=== PATIENT | female | born 1970 | race Caucasian/White ===

== ENCOUNTER 2023-04-03 06:07 | Observation (INO) ==
--- NOTE | 2023-03-17 15:24 | PAT Medication Instructions ---
Medication Instructions Date of Service March 17, 2023 Home Medications alprazolam 0.5 mg tablet 0.5 mg PO TID PRN Anxiety cyclobenzaprine 10 mg tablet 10 mg PO HS PRN muscle spasms liraglutide (weight loss) 3 mg/0.5 mL (18 mg/3 mL) subcut pen injector (Saxenda) 3 mg subcut QAM metoprolol tartrate 25 mg tablet 25 mg PO HS DO NOT take the morning of surgery liraglutide (weight loss) 3 mg/0.5 mL (18 mg/3 mL) subcut pen injector (Saxenda) 3 mg subcut QAM Take morning of surgery With a small sip of water, OTHERWISE NOTHING TO EAT OR DRINK AFTER MIDNIGHT: alprazolam 0.5 mg tablet 0.5 mg PO TID PRN Anxiety (if needed) Take evening before surgery alprazolam 0.5 mg tablet 0.5 mg PO TID PRN Anxiety (if needed) metoprolol tartrate 25 mg tablet 25 mg PO HS cyclobenzaprine 10 mg tablet 10 mg PO HS PRN muscle spasms (if needed) Other Notes If you have any questions please call us at [phone] or [phone] or [phone] or [phone]
--- NOTE | 2023-03-20 11:21 | Anesthesiology Consultation ---
Date of Service March 20, 2023 Assessment & Plan (1) Encounter for pre-operative examination: - check urine test STAT Am DOS. - awaiting surgeon ordered medical clearance, Edenilson Caldwell, 03/26/23. Optimization form regarding palpitations with associated dizziness completed, to be faxed to PCP. Chart Review Chart Review: Pending: Refer to Additional Notes / Consult section and Patient seen in Pre Admission Testing Teaching & Discussion Pre-Anesthesia Teaching/Discussion Notes: Instructed NPO after midnight before surgery, except medications with 15 cc of water. Medication instructions provided according to the PAT guidelines. History Surgery Operation Date: 04/03/23 10:05 Proposed Procedures p C6 Corpectomy, C5-C7 Fusion - Mckay Brady, Height/Weight Height: 4 ft 11 in Weight: 86 kg Allergies Allergy/AdvReac Type Severity Reaction Status Date / Time codeine AdvReac Unknown Headache Verified 03/16/23 10:03 Medications Home Medications Medication Instructions Recorded Confirmed Last Taken alprazolam 0.5 mg tablet 0.5 mg PO TID PRN Anxiety 03/16/23 03/16/23 Unknown cyclobenzaprine 10 mg tablet 10 mg PO HS PRN muscle spasms 03/16/23 03/16/23 Unknown liraglutide (weight loss) 3 mg/0.5 3 mg subcut QAM 03/16/23 03/16/23 Unknown mL (18 mg/3 mL) subcut pen injector (Saxenda) metoprolol tartrate 25 mg tablet 25 mg PO HS 03/16/23 03/16/23 Unknown Past Medical History Medical History (Updated 03/20/23 @ 12:28 by Aliya Pisano PA-C) Anxiety Depression GERD (gastroesophageal reflux disease) controlled, stable per pt-notices increase with stress or tomato based foods History of COVID-19 07/2021- fever, fatigue, SOB - denies hospitalization - resolved Obesity Taking Saxenda for weight loss Palpitations controlled w/ metoprolol, reports chronic occasional associated lightheadedness/dizziness without presyncope/change/worsening Patient denies h/o stroke, seizures, heart attack, heart failure, DM, HTN, blood clots or blood transfusions. Exercise / Class Metabolic Activity II 4-5 Yardwork/Stairs/Walk up hill (denies shortness of breath or chest discomfort with 1 FOS) Past Family History Family History Other No family history of adverse response to anesthesia Past Surgical History Surgical History (Updated 03/20/23 @ 11:40 by Aliya Pisano PA-C) H/O shoulder surgery left SLAP tear History of endometrial ablation Hx of section x2 Hx of cholecystectomy Nausea and vomiting after administration of anesthetic agent denies needing scop patch Past Anesthesia History No Hx of Anesthesia Complications and No Family Hx of Anesthesia Complications History of PONV History of PONV (denies needing scop patch) and Hx of Motion Sickness Social History Smoking Status: Current every day smoker tobacco type: cigarettes Smoking cigarettes per day: 10 per day - advised Do You Dip or Chew Tobacco: No Hx Alcohol Use: No Hx Substance Use: No substance use type: does not use Review of Systems Snoring, denies witnessed apneas. Patient denies chest pain, shortness of breath, dyspnea on exertion, fever, chills, cough, or wheezing. Physical Exam Vital Signs Vitals BP 113/81 P 97 TEMP 98.7 SP02 98% on RA RESP 18 Physical Full cervical extension range of motion without pain TMD 3.5 finger breadths Mallampati Score 3 Dentition: one crown, denies chipped or loose teeth, caps, implants or bridges Lungs: normal respiratory effort. Good air movement, clear throughout to auscultation, no adventitious breath sounds Cardiac: regular rate and rhythm, no murmurs noted Carotid arteries: negative bruit bilat Lab Results Anesthesia Preop Results Results Anesthesia Widget: WBC 11.54 K/ul (4.8-10.8) H 03/20/23 Hgb 14.1 g/dl (12.0-16.0) 03/20/23 Hct 41.7 % (37.0-47.0) 03/20/23 Plt 408 K/uL (130-400) H 03/20/23 Na 138 mmol/L (136-145) 03/20/23 K 3.9 mmol/L (3.5-5.1) 03/20/23 Cl 108 mmol/L (98-107) H 03/20/23 CO2 25 mmol/L (21-32) 03/20/23 BUN 11 mg/dl (6-23) 03/20/23 Creat 0.64 mg/dl (0.6-1.2) 03/20/23 Glucose Level 85 mg/dl (70-99(Fasting)) 03/20/23 PT 11.4 Seconds (9.0-12.0) 03/20/23 PTT 28.7 Seconds (21.0-31.0) 03/20/23 INR 1.0 (0.9-1.1) 03/20/23 Urine Color Yellow 03/20/23 Urine Appearance Clear (Clear) 03/20/23 Urine pH 6.5 (4.5-7.5) 03/20/23 Urine Specific [place] 1.005 (1.000-1.030) 03/20/23 Urine Protein Negative (Negative) 03/20/23 Urine Glucose (UA) Negative (Negative) 03/20/23 Urine Ketones Negative (Negative) 03/20/23 Urine Blood Negative (Negative) 03/20/23 Urine Nitrite Negative (Negative) 03/20/23 Urine Bilirubin Negative (Negative) 03/20/23 Urine Urobilinogen Negative (Negative) 03/20/23 Urine Leukocyte Esterase Negative (Negative) 03/20/23 Blood Type A Positive 03/20/23 Antibody Screen NEGATIVE 03/20/23 Testing Electrocardiogram Date: 03/20/23 NSR, rate 92 bpm Chest X-Ray Date: 03/20/23 No acute process COVID-19 Risk Screen Screening Information COVID-19 Screen Date: 03/20/23 Exposure 21 Days Family/Household +COVID Last 21 Days: No Exposure 10 Days Any COVID Exposure Last 10 Days: No Symptoms Last 10 Days Experienced COVID Sx Last 10 Days: No + COVID 0-90 Days COVID + in Last 0-90 Days: No
[~2023-04-03 06:07] MED LIST: ACETAMINOPHEN 500 MG TAB PO SCH; CeleBREX 200 MG CAP PO SCH; GABAPENTIN 900 MG DOSE PO SCH; LR 15ML/HR IV SCH; LR 60ML/HR IV SCH; ceFAZolin 2000MG 2,000 MG/15 ML SYR IV SCH
[2023-04-03] MEDS ORDERED: PROMETHAZINE HCL 12.5 MG in SODIUM CHLORIDE 0.9% 50 ML IV PRN ×2 (06:58→11:27)
[2023-04-03] MEDS ORDERED: fentaNYL citrate PF 100 MCG/2 ML VIAL IV PRN (06:58)
[2023-04-03] MEDS ORDERED: ATROPINE SULFATE 0.1 MG/ML 10ML SYR IV PRN (06:58)
[2023-04-03] MEDS ORDERED: HYDROmorphone INJ 2 MG/ML SYR/VIAL IV PRN (06:58)
[2023-04-03] MEDS ORDERED: ePHEDrine sulfate 50 MG/ML AMP IV PRN (06:58)
[2023-04-03] MEDS ORDERED: ONDANSETRON INJ 2 MG/ML 2 ML VIAL IV PRN ×2 (06:58→11:27)
[2023-04-03] MEDS ORDERED: PROPOFOL IV EMULSION 10 MG/ML 20 ML VIAL IV ONE (07:23)
[2023-04-03] MEDS ORDERED: ONDANSETRON INJ 2 MG/ML 2 ML VIAL ONE ×2 (07:24→08:38)
[2023-04-03] MEDS ORDERED: LIDOCAINE 2% 2 ML VIAL/AMP(20MG/ML) INFIL ONE (07:24)
[2023-04-03] MEDS ORDERED: DEXAMETHASONE SOD INJ 4 MG/ML VIAL ONE (07:24)
[2023-04-03] MEDS ORDERED: MIDAZOLAM HCL 1 MG/ML 2ML VIAL ONE (07:24)
[2023-04-03] MEDS ORDERED: ROCURONIUM BROMIDE 10 MG/ML 5 ML VIAL IV ONE ×2 (07:24→09:03)
[2023-04-03] MEDS ORDERED: fentaNYL citrate PF 100 MCG/2 ML VIAL ONE ×2 (07:24→08:33)
[2023-04-03] MEDS ORDERED: DexMEDEtomidine HCL IV 100 MCG/ML VIAL IV ONE (07:30)
--- NOTE | 2023-04-03 07:40 | History & Physical Bridge Note ---
Date of Service April 03, 2023 History & Physical Bridge Note I have examined the patient, reviewed the History & Physical and in the interval since the performance of the History & Physical I have noted the following changes of clinical significance: no changes noted
--- NOTE | 2023-04-03 07:41 | History & Physical Report ---
Date of Service April 03, 2023 Assessment & Plan (1) Myelopathy concurrent with and due to spinal stenosis of cervical region: Plan: C6 corpectomy, C5-C7 fusion History of Present Illness Chief Complaint: Neck and arm pain Primary Care Provider: Edenilson Caldwell DO This is a 52-year-old female presents with chronic persistent neck and arm pain after failing course of nonoperative care is here for surgical invention. Allergies Allergy/AdvReac Type Severity Reaction Status Date / Time codeine AdvReac Unknown Headache Verified 04/03/23 06:26 Home Medications Medication Instructions Recorded Confirmed Type alprazolam 0.5 mg tablet 0.5 mg PO TID PRN Anxiety 03/16/23 04/03/23 History cyclobenzaprine 10 mg tablet 10 mg PO HS PRN muscle spasms 03/16/23 04/03/23 History liraglutide (weight loss) 3 mg/0.5 3 mg subcut QAM 03/16/23 04/03/23 History mL (18 mg/3 mL) subcut pen injector (Saxenda) metoprolol tartrate 25 mg tablet 25 mg PO HS 03/16/23 04/03/23 History Past Med/Surg History Medical History (Updated 04/03/23 @ 07:40 by Mckay Brady DO) Anxiety Depression GERD (gastroesophageal reflux disease) controlled, stable per pt-notices increase with stress or tomato based foods History of COVID-19 07/2021- fever, fatigue, SOB - denies hospitalization - resolved Obesity Taking Saxenda for weight loss Palpitations controlled w/ metoprolol, reports chronic occasional associated lightheadedness/dizziness without presyncope/change/worsening Surgical History H/O shoulder surgery left SLAP tear History of endometrial ablation Hx of section x2 Hx of cholecystectomy Nausea and vomiting after administration of anesthetic agent denies needing scop patch Family History Other No family history of adverse response to anesthesia Social History Smoking Status: Current every day smoker Cigarettes Per Day: 10 per day - advised; Second Hand Exposure: No; Do You Dip or Chew Tobacco: No; Tobacco Cessation Education Requested by Patient: No Hx Alcohol Use: No Hx Substance Use: No Preferred Language: Tajik Communication Ability: Effective Supervisor Component Assembler Required: No Beliefs That Will Affect Care: None Current Living Situation: Spouse Other Information That Helps Us Care for You: No Feels Safe at Home: Yes Safety Concerns: Feels Safe At This Time Assistive Devices: Glasses Physical Exam Physical Exam: Patient is alert and oriented Heart regular rhythm Lungs clear Results & Data Results & Data Vital Signs (Past 12 Hours) Vital Signs Temp Pulse Resp BP Pulse Ox O2 Del Method 04/03/23 06:27 36.7 C 91 H 18 153/76 H 98 Room Air
[2023-04-03] MEDS ORDERED: SCOPOLAMINE 1 MG TDSY TD ONE (07:42)
[2023-04-03] MEDS ORDERED: ceFAZolin 330 MG/ML 1 GM VIAL ONE (07:44)
[2023-04-03] MEDS ORDERED: KETAMINE 50 MG/5 ML SYRINGE ONE (08:23)
[2023-04-03] MEDS ORDERED: FLOSEAL HEMOSTATIC MATRIX 10ML TOP ONE (08:38)
[2023-04-03] MEDS ORDERED: METOCLOPRAMIDE HCL INJ 5 MG/ML 2 ML VIAL ONE (09:17)
[2023-04-03] MEDS ORDERED: SUGAMMADEX SODIUM 200 MG/2 ML VIAL IV ONE (09:35)
--- NOTE | 2023-04-03 09:44 | Operative Report ---
Post Operative Report Pre & Post Diagnosis Operation Date: 04/03/23 07:45 Pre-Op Diagnosis: Cervical spinal stenosis with myelopathy Post-Op Diagnosis: Same I identified the patient and participated in the time-out.: Yes Procedure Operation Date: 04/03/23 07:45 Actual Procedures 1. Anterior cervical corpectomy with bilateral foraminotomies C6. #2 anterior cervical arthrodesis C5-C7. #3 placement of peek 25 mm cage C5-C7. #4 placement locally harvested morselized autograft completed with I factor and interbody cage. #5 application of K2 M plate and screws across C5-C7. Surgeon Mckay Brady, DO [employer] Mendez Ovalle Estimated Blood Loss 25 Findings See Below The patient is 4 foot 11 weighing over 86 kg with a BMI in excess of 38. Patient's body was did contribute to significant technical difficulty with difficult exposure adding at least 50% increased operative time Specimens none Indications This is a 52-year-old female who presents above-mentioned diagnosis after failing course of nonoperative care is here for the above-mentioned procedure. Description of Procedure Patient was met with identified informed sent obtained. Patient was then taken to the operative suite underwent a patient placed in spine position jacks table at [facility]. All bony prominences well-padded eyes inspected to ensure no external pressure placed upon them. This point the anterior cervical spine is prepped draped in a sterile fashion. Identified the C6 vertebral body with assistance of fluoroscopy and a transverse incision was placed along the right anterior aspect of the cervical spine overlying this region. Blunt dissection with the assistance of bipolar cautery as well down to and exposing the anterior cervical spine from C5-C7. Self-retaining retractors placed. Then performed a complete discectomy of C5-C6 out to the uncovertebral's bilaterally followed by C6-C7. Self-retaining retractors placed. Informed complete discectomy of C5-C6 out to the ankle vertebral joints bilaterally followed by C6-C7. Sims distracting pins were utilized to assist in visualization. I then performed a complete corpectomy of C6 including removal of all posterior annular fibers longitudinal ligament bilateral foraminotomies performed. Endplates were then burred to subcortically bone and 25 mm peek filled with locally harvested morselized autograft I factor tapped in position. Distracting apparatus was removed and a K2 M plate and screws applied with the assistance of fluoroscopy. The incision was then copiously irrigated explored to ensure no damage to surrounding structures or remaining bleeding. 10 round JENNIFER drain in serted. The incision was then closed with 2 Vicryl in a fashion of 4 Monocryl for final closure. Steri-Strips sterile dressing placed. Patient waken taken to PACU in stable condition. Please note spinal cord monitoring was utilized at the procedure no changes noted. Lastly Mendez Ovalle was present at the entire surgery involved the patient positioning complex portion of the surgery and final skin closure. I attest to the content of the Intraoperative Record and any orders documented therein. Any exceptions are noted below.
[2023-04-03] MEDS ORDERED: HYDROmorphone INJ 2 MG/ML SYR/VIAL ONE (09:52)
--- NOTE | 2023-04-03 10:43 | Anesthesiology Progress Note ---
Date of Service April 03, 2023 Anesthesia Post Procedure Vital Signs Vital Signs: Temp Pulse Resp BP Pulse Ox O2 Del Method O2 Flow Rate 04/03/23 10:30 110 H 12 151/84 H 95 Nasal Cannula 3 04/03/23 10:20 110 H 12 149/80 H 97 Oxymask 10 04/03/23 10:10 96 H 12 123/79 98 Oxymask 10 04/03/23 10:01 36.1 C L 100 H 12 145/101 H 95 Oxymask 10 04/03/23 06:27 36.7 C 91 H 18 153/76 H 98 Room Air Pain Intensity Lower Back: Pain Intensity: 2 Transfer of Care Handoff Completed per policy Notes Mental Status: alert / awake / arousable and participated in evaluation Patient Amnestic to Procedure: Yes Nausea / Vomiting: adequately controlled Pain: adequately controlled Airway Patency, RR, SpO2: stable & adequate BP & HR: stable & adequate Hydration State: stable & adequate Anesthetic Complications: no major complications apparent
[2023-04-03] MEDS ORDERED: traMADol HCL 50 MG TABLET PO PRN (11:27)
[2023-04-03] MEDS ORDERED: ACETAMINOPHEN 500 MG TAB PO PRN (11:27)
[2023-04-03] MEDS ORDERED: DO NOT ADMINISTER FLU VACCINE PRN (11:27)
[2023-04-03] MEDS ORDERED: NALOXONE HCL 0.4 MG/1 ML VIAL/CARP IV PRN (11:27)
[2023-04-03] MEDS ORDERED: bisacodyL 10 MG SUPP PR PRN (11:27)
[2023-04-03] MEDS ORDERED: LORazepam 0.5 MG TAB PO PRN (11:27)
[2023-04-03] MEDS ORDERED: SOD PHOSPHATE/SOD BIPHOSPHATE ENEMA 132 ML BTL PR PRN (11:27)
[2023-04-03] MEDS ORDERED: diphenhydrAMINE Capsule 25 MG CAP PO PRN (11:27)
[2023-04-03] MEDS ORDERED: hydrOXYzine HCl 25 MG TAB PO PRN (11:27)
[2023-04-03] MEDS ORDERED: FAMOTIDINE 20 MG TAB PO PRN (11:27)
[2023-04-03] MEDS ORDERED: MAGNESIUM HYDROXIDE SUSP 30 ML UDC PO PRN (11:27)
[2023-04-03] MEDS ORDERED: ALPRAZolam 0.5 MG TABLET PO PRN (11:27)
[2023-04-03] MEDS ORDERED: HYDROmorphone INJ 0.5 MG/0.5 ML SYR IV PRN (11:27)
[2023-04-03] MEDS ORDERED: METOCLOPRAMIDE HCL INJ 5 MG/ML 2 ML VIAL IV PRN (11:27)
[2023-04-03] MEDS ORDERED: ONDANSETRON 4 MG OD TAB PO PRN (11:27)
[2023-04-03] MEDS ORDERED: RACEPINEPHRINE 2.25% NEBU SOLN 0.5 ML VIAL INH PRN (11:27)
[2023-04-03] MEDS ORDERED: HYDROmorphone INJ 1 MG/ML SYRINGE IV PRN (11:27)
[2023-04-03] MEDS ORDERED: ALUMINUM/MAGNESIUM SUSP 30 ML UDC PO PRN (11:27)
[2023-04-03] MEDS ORDERED: ACETAMINOPHEN 1,000 MG/100 ML VIAL IV PRN (11:27)
[2023-04-03] MEDS ORDERED: dexAMETHasone 8 MG in SYRINGE 0 ML IV PRN (11:27)
[2023-04-03] MEDS ORDERED: LORazepam 2 MG/1 ML VIAL IV PRN (11:27)
[2023-04-03] MEDS ORDERED: oxyCODONE HCL IR 5 MG TAB (IMMEDIATE RELEASE) PO PRN (11:27)
[2023-04-03] MEDS ORDERED: DO NOT ADMINISTER PNEUMOCOCCAL VACCINE PRN (11:27)
--- NOTE | 2023-04-03 11:43 | Fluoroscopy Report ---
FL cervical 2-3V CLINICAL HISTORY: C6 CORPECTOMY C5-C7 FUSION COMPARISON STUDY: None. FLUOROSCOPY TIME: 16 seconds FLUOROSCOPY IMAGES: 3 Ka,r: 2.0 mGy FINDINGS: Anterior cervical discectomy and fusion at C5-C7 with C6 corpectomy and bone graft. The priya dware appears intact. There is a surgical sponge anterior to the fusion hardware. An endotracheal tub e is noted. IMPRESSION: Fluoroscopic assistance as above. ACT 112: Negative or not required by law. Electronically signed by: Orlando Florez M.D. 04/03/2023 11:42 AM
[2023-04-03] MEDS: LACTATED RINGER'S 1,000 ML IV SCH ×2 (13:10→23:43)
[2023-04-03] MEDS: ceFAZolin 2000MG 2,000 MG/15 ML SYR IV SCH ×2 (15:20→22:53)
[2023-04-03] MEDS ORDERED: DOCUSATE SODIUM/SENNA 50/8.6MG TAB PO SCH (21:00)
[2023-04-03] MEDS ORDERED: METOPROLOL TARTRATE 25 MG TAB PO SCH (21:00)
[2023-04-04] MEDS ORDERED: POLYETHYLENE (MIRALAX) 17 GM PACK PO SCH (06:00)
--- NOTE | 2023-04-04 08:44 | Discharge Summary ---
Date of Service April 04, 2023 Admission HPI Per Admitting Provider This is a 52-year-old female presents with chronic persistent neck and arm pain after failing course of nonoperative care is here for surgical invention. Admission Exam (Per Admitting) Constitutional WD/WN, vitals as above Eyes normal visual wiseman by confrontation ENMT external ear and nose normal, oropharynx normal Neck normal visual inspection Respiratory normal respiratory effort Cardiovascular Extremities: normal capillary refill Gastrointestinal (Abdomen) Inspection/Auscultation: abdomen normal to inspection Musculoskeletal Spine: + limited cervical ROM and + pain with cervical ROM Extremities: extremities normal to inspection and strength 5/5 throughout Skin no rashes, warm and dry Neurologic normal touch/pain/proprioception and moves all extremities Psychiatric A+Ox3, euthymic affect Eye Contact: good eye contact Discharge Data Procedures Performed Operation Date: 04/03/23 07:45 Actual Procedures p C6 Corpectomy, C5-C7 Fusion, Spinal Cord Monitoring(Not Applicable) - Mckay Brady DO Hospital Course (1) Myelopathy concurrent with and due to spinal stenosis of cervical region: Violeta is being discharged home on postoperative day 1 status post C6 corpectomy. She had an uneventful evening. Pain is controlled. Arm symptoms improved. She has mild dysphagia but is tolerating a soft diet. She is up and ambulatory to the restroom. Discharge Instructions ACTIVITY RECOMMENDATIONS: SELF CARE INSTRUCTIONS AFTER CERVICAL FUSIONS 1. No smoking. Smoking drastically decreases the chance of a solid fusion. 2. No bending, lifting more than 5 pounds, or twisting (roll like a log when turning in bed). 3. You may shower 3 days after surgery. Thoroughly dry wound. Do not soak in the tub. 4. Cervical collar: Must be worn at all times including sleeping. You may remove the brace only to bath, eat and if you are sitting in a recliner. 5. Please walk as much as you can for exercise. Gradually increase the distance that you walk as your endurance increases. SPECIAL CARE INSTRUCTIONS: VERY IMPORTANT TO READ AND REVIEW A. Do not take any anti-inflammatory medications (i.e. Indocin, Advil, Aspirin, Naprosyn, Aleve, Motrin, etc.) as these may inhibit the chance of a solid fusion. Tylenol is okay to take. B. Your surgical incision has been closed with a cosmetic suture under the skin that will dissolve in about 6 weeks. In 14 days, you can use a pair of clean scissors and cut the suture that is left outside of the skin at the ends of your incision. C. Complications are uncommon, but please contact us if you have any signs or symptoms of: 1. wound infection (fever higher than 102.5 degrees F, redness, separation of wound, drainage, or increasing pain from the incision) 2. blood clots in legs (pain, swelling, redness and warmth in legs) 3. urinary tract infection (fever higher than 102.5 degrees, burning upon urination or increased frequency of urination) 4. nerve problems (inability to walk on your toes or heels, numbness, loss of bowel or bladder control) 5. any other symptoms that concern you. D. Please call the office at if you have any concerns or questions about your operation or recovery. MANAGING PAIN AFTER SPINAL SURGERY 1. Narcotic medication is intended for short-term use and will be provided for surgical pain. Surgical pain usually lasts for a period of 4-6 weeks. Narcotic medication includes Percocet, Vicodin, Darvocet, Tylenol #3 or Lortab. 2. Longer-term pain is more appropriately treated with non-narcotic medication such as Tylenol ES. 3. Muscle spasm is not appropriately treated with narcotics. Muscle relaxers such as Soma, Flexeril or Skelaxin can be used along with Tylenol ES. 4. Remember that we all live with some "aches and pains". This is not unusual or uncommon after an injury or as we get older. 5. We will provide appropriate medication within the normal guidelines of their prescribed use. We will also be very cautious and aware of potential abuse and extended duration of patients' medication needs. 6. Please allow 2-3 days to process refills. Prescriptions will not be mailed but must be picked up at the office. FOLLOW UP VISIT: Keep your scheduled follow-up appointment. Any questions, please call the office at .
[2023-04-04] MEDS ORDERED: dexAMETHasone 6 MG in SYRINGE 0 ML IV SCH (09:00)
== END 2023-04-04 11:34 | disposition home or self-care (01) ==
LOC: ASU 06:07 → 3E 06:07